=== PATIENT | female | born 1945 | race Two or more races ===

== ENCOUNTER 2018-05-21 13:10 | Outpatient (CLI) | payer OTHER | END 2018-05-21 13:38 | disposition home or self-care (01) | LOC: NUCLEAR 13:10 | DX: M81.0 Age-related osteoporosis without current pathological fracture (principal) ==

== ENCOUNTER 2022-10-09 13:00 | Outpatient (CLI) | payer OTHER | END 2022-10-09 13:07 | disposition home or self-care (01) | LOC: NUCLEAR 13:00 | PROVIDERS: ATTEND Obstetrics & Gynecology Gynecology | DX: M81.0 Age-related osteoporosis without current pathological fracture (principal) ==